=== PATIENT | female | born 1980 | race African-American/Black ===

== ENCOUNTER 2025-01-15 16:09 | Inpatient (IN) | payer MEDICAID ==
[~2025-01-15] VITALS: Ht 152.4 cm; Wt 85.7 kg
[2025-01-15 16:10] VITALS: O2SAT 99
[2025-01-15 18:11] LABS: CLARITY URINE CLEAR (CLEAR); COLOR URINE DARK YELLOW (YELLOW); GLUCOSE URINE NEGATIVE (NEGATIVE); KETONES URINE TRACE (NEGATIVE); LEUKOCYTE ESTERASE URINE 1+ (NEGATIVE); NITRITE URINE POSITIVE (NEGATIVE); OCCULT BLOOD URINE TRACE (NEGATIVE); PH URINE 5.5 (4.5-8.0); PROTEIN URINE TRACE (NEGATIVE); SPECIFIC GRAVITY URINE 1.013 (1.005-1.030); UROBILINOGEN URINE 1.0 E.U./dL (0.2-1.0)
[2025-01-15] MEDS: SODIUM CHLORIDE 0.9% 1,000 ML IV ONE (18:23)
[2025-01-15] MEDS: LORAZEPAM 1MG TABLET PO ONE (18:29)
[2025-01-15 18:33] LABS: BASOPHILS % 0.9 % (0.0-2.0); EOSINOPHILS % 0.2 % (0.0-5.0); HEMATOCRIT. 24.5 % (36.0-48.0); HEMOGLOBIN. 7.5 g/dL (12.0-16.0); LYMPHOCYTES % 12.1 % (20.0-50.0); MEAN PLATELET VOLUME 8.2 fl (7.4-10.4); MONOCYTES % 11.8 % (2.0-8.0); NEUTROPHILS % 75.0 % (40.0-76.0); PLATELET 257 x1000/uL (130-400); RED BLOOD CELL COUNT 3.10 mill/uL (4.2-5.4); RED CELL DISTRIBUTION WIDTH 20.2 % (11.6-14.6)
[2025-01-15 18:45] LABS: HCG SCREEN NEGATIVE
[2025-01-15 18:47] LABS: CREATININE 0.9 mg/dL (0.6-1.0); TROPONIN I HIGH SENSITIVITY 6 ng/L (3.0-34); UREA NITROGEN BLOOD 6 mg/dL (9-23)
[2025-01-15 18:48] LABS: BACTERIA URINE 1+; RBC URINE 0-2 /hpf (0-2); SQUAMOUS EPITHELIAL CELL URINE 1+ /lpf (RARE/1+)
[2025-01-15] MEDS: CEFTRIAXONE 1GM/50ML 50 ML IV ONE (19:38)
[2025-01-15 22:39] VITALS: BP 128/92; PULSE 106; RESP 18; TEMP 36.3624
[2025-01-16] VITALS (11 sets, daily range): BP systolic 116–138; BP diastolic 75–97; PULSE 82–106; RESP 18–19; TEMP 36.28068–38.00304; O2SAT 97–100
[2025-01-16] MEDS: FLUOXETINE HCL 20MG CAPSULE PO SCH (00:12)
[2025-01-16] MEDS: ALPRAZOLAM 0.25 MG TABLET PO PRN (01:54)
[2025-01-16] MEDS: PANTOPRAZOLE 40MG DR TABLET PO SCH (06:27)
[2025-01-16] MEDS: FERROUS SULFATE 325MG TABLET PO SCH (08:13)
[2025-01-16] MEDS: DOCUSATE SODIUM 100MG CAPSULE PO SCH (08:13)
[2025-01-16 08:28] LABS: BASOPHILS % 1.2 % (0.0-2.0); EOSINOPHILS % 1.1 % (0.0-5.0); HEMATOCRIT. 22.6 % (36.0-48.0); HEMOGLOBIN. 7.2 g/dL (12.0-16.0); LYMPHOCYTES % 15.3 % (20.0-50.0); MEAN PLATELET VOLUME 8.5 fl (7.4-10.4); MONOCYTES % 14.9 % (2.0-8.0); NEUTROPHILS % 67.5 % (40.0-76.0); PLATELET 214 x1000/uL (130-400); RED BLOOD CELL COUNT 2.89 mill/uL (4.2-5.4); RED CELL DISTRIBUTION WIDTH 19.9 % (11.6-14.6)
[2025-01-16 08:49] LABS: CREATININE 0.9 mg/dL (0.6-1.0); UREA NITROGEN BLOOD 6 mg/dL (9-23)
[2025-01-16] MEDS: CEPHALEXIN 250MG CAPSULE PO SCH (14:06)
[2025-01-16 16:06] LABS: INR 1.2
[2025-01-16] MEDS ORDERED: FERR-63 PO (18:15)
[2025-01-16] MEDS ORDERED: CEPH250C2 PO (18:15)
[2025-01-16] MEDS ORDERED: FLUOXETINE HCL 20MG CAPSULE PO SCH (21:00)
== END 2025-01-16 19:27 | disposition home or self-care (01) | DRG 463 ==
LOC: ER 16:09 → EDBEDREQTM 19:40 → EDBEDREQ 19:40 → ENRESERV 20:29 → 6EST 20:50
PROVIDERS: ADMIT Internal Medicine; ATTEND Internal Medicine
DX: N39.0 Urinary tract infection, site not specified (principal); E87.1 Hypo-osmolality and hyponatremia; D64.9 Anemia, unspecified; F41.0 Panic disorder [episodic paroxysmal anxiety]
CPT/HCPCS: 36415; 80048; 81003; 84443; 84484; 84703; 85014; 85018; 85025; 85049; 85384; 86850; 86900; 86920; 99285; J0696; J7030; P9016